=== PATIENT | male | born 1955 | race Two or more races ===

== ENCOUNTER 2023-07-27 12:12 | Emergency (ER) | payer OTHER ==
[~2023-07-27] VITALS: Ht 182.9 cm; Wt 81.6 kg
[2023-07-27] MEDS ORDERED: TIROSINT25 MCG (13:23)
[2023-07-27] MEDS ORDERED: FARXIGA10 MG (13:24)
[2023-07-27] MEDS ORDERED: TOPROL XL50 M1 (13:24)
[2023-07-27] MEDS ORDERED: LIPITOR40 M1 (13:24)
[2023-07-27] MEDS ORDERED: OZEMPIC1 MG/0.71 (13:24)
[2023-07-27] MEDS ORDERED: EPLERENONE25 MG (13:24)
[2023-07-27] MEDS ORDERED: VITAMIN B-121000 MC4 (13:25)
[2023-07-27] MEDS ORDERED: ADCIRCA20 MG (13:25)
[2023-07-27] MEDS ORDERED: OXAYDO5 MG (13:25)
[2023-07-27] MEDS ORDERED: PANTOPRAZOLE SO40 M2 (13:25)
[2023-07-27] MEDS ORDERED: UROXATRAL10 MG (13:26)
[2023-07-27] MEDS ORDERED: CETIRIZINE HCL 5 MG/5 ML ML PO ONE (14:45)
[2023-07-27] MEDS ORDERED: GUAIFENESIN/DEXTROMETHORPHAN 100 MG/5 ML ML PO ONE (14:45)
[2023-07-27] MEDS ORDERED: IPRATROPIUM/ALBUTEROL SULFATE 3 ML AMPUL.NEB IH ONE (14:45)
[2023-07-27 15:09] LABS: HEMATOCRIT 37.7 % (39.0-48.0); HEMOGLOBIN 12.7 g/dL (13-16.00); MEAN CELL VOLUME 84.2 fL (80.0-100.00); MEAN CORPUSCULAR HEMOGLOBIN 28.5 pg (27.00-32.0); MEAN CORPUSCULAR HGB CONC 33.8 g/dl (32.0-36.0); RED BLOOD COUNT 4.48 M/uL (4.00-6.00); RED CELL DISTRIBUTION WIDTH 16.4 % (11.5-14.5)
[2023-07-27 15:13] LABS: PLATELET COUNT 122 K/uL (150-450)
[2023-07-27] MEDS ORDERED: 0.9 % SODIUM CHLORIDE 500 ML IV ONE (17:00)
[2023-07-27] MEDS ORDERED: TUSSIN DM SYRU118 ML PO (18:15)
[2023-07-27] MEDS ORDERED: ZYRTEC10 MG PO (18:15)
== END 2023-07-27 18:43 ==
LOC: ER 12:13
PROVIDERS: Nurse Practitioner Family
DX: R53.81 Other malaise (principal); A92.8 Other specified mosquito-borne viral fevers; J00 Acute nasopharyngitis [common cold]; Z20.822 Contact with and (suspected) exposure to COVID-19; I10 Essential (primary) hypertension; E03.8 Other specified hypothyroidism; E11.9 Type 2 diabetes mellitus without complications; Z88.8 Allergy status to other drugs, medicaments and biological substances
CPT/HCPCS: 36415; 71046; 94640; 96365; 99283; J7042